=== PATIENT | female | born 1945 | race Caucasian/White ===

== ENCOUNTER → 2018-01-15 | Outpatient (CLI) | payer MEDICARE ==
--- NOTE | 2018-01-16 09:22 | US ---
EXAMINATION TYPE: US pelvic complete DATE OF EXAM: 01/15/2018 COMPARISON: NONE CLINICAL HISTORY: N94.9 Adnexal Mass. Patient c/o left hip joint pain and left knee pain and stated h ad possible CT abd/pelvis at [facility] recently TECHNIQUE: Transabdominal (TA); patient deferred TV US when offered to better look at left adnexa; ; C section x 3 Date of LMP: in early forties. EXAM MEASUREMENTS: Uterus: 11.9 x 5.2 x 3.7 cm Endometrial Stripe: 6.6mm Right Ovary: 2.5 x 2.8 x 1.1 cm Left Ovary: 3.7 x 3.9 x 3.2 cm 1. Uterus: Anteverted; possible uterine fibroid superiorly noted as round hypoechoic complex mass = 3.7 x 2.4 x 2.7cm 2. Endometrium: thickness is wnl as is <8.0mm and asymptomatic 3. Right Ovary: wnl 4. Left Ovary: tubular structure noted at left ovarian level and may be hydrosalpinx with adjacent m edial area noted as ovary on image #30 5. Bilateral Adnexa: right adnexa wnl 6. Posterior cul-de-sac: wnl Grayscale, color Doppler imaging performed IMPRESSION: Endovaginal scanning refused by the patient, limited exam. Suspect fibroid uterus. There may be a hydrosalpinx, left ovarian cyst, consider TROUSSEAU CONSULTANT consult, follow-up.
== END | disposition home or self-care (01) ==
LOC: RADUSWWP 15:19
PROVIDERS: ATTEND Internal Medicine
DX: N94.9 Unspecified condition associated with female genital organs and menstrual cycle (principal)
CPT/HCPCS: 76856

== ENCOUNTER 2023-02-19 05:53 | Day surgery (SDC) | payer MEDICARE ==
[2023-02-16 11:33] VITALS: BMI 42.7
[~2023-02-19 05:53] MED LIST: ALPRAZolam 0.25 MG TAB PO PRN; ALPRAZolam 0.5 MG TAB PO PRN; HEPARIN SODIUM,PORCINE 10,000 UNIT in SODIUM CHLORIDE 0.9% 1,000 ML IRRIGATION PRN; HEPARIN SODIUM,PORCINE 2,500 UNIT in SODIUM CHLORIDE 0.9% 250 ML IRRIGATION PRN; NITROGLYCERIN SL TABS 0.4 MG TAB SUBLINGUAL PRN; SODIUM CHLORIDE 0.9% 1,000 ML in EMPTY BAG 1 BAG IV SCH
[2023-02-19] MEDS ORDERED: SODIUM CHLORIDE 0.9% 1,000 ML IV ONE (06:06)
[2023-02-19] MEDS ORDERED: ASPIRIN 81 MG ONE (06:09)
[2023-02-19 06:32] LABS: Glucose,Whole Blood 123 mg/dL (70-110)
[2023-02-19 06:46] VITALS: RESP 18; TEMP 97.4
[2023-02-19 06:46] LABS: Basophils # (A) 0.1 k/uL (0-0.2); Basophils % (A) 1 %; Eosinophils # (A) 0.3 k/uL (0-0.7); Eosinophils % (A) 6 %; HCT 40.5 % (34.0-46.0); HGB 12.9 gm/dL (11.4-16.0); Lymphocytes # (A) 1.4 k/uL (1.0-4.8); Lymphocytes % (A) 27 %; MCHC 31.9 g/dL (31.0-37.0); MCV 94.2 fL (80.0-100.0); Monocytes # (A) 0.4 k/uL (0-1.0); Monocytes % (A) 7 %; Neutrophils % (A) 56 %; Platelet Count 243 k/uL (150-450); WBC 5.4 k/uL (3.8-10.6)
[2023-02-19] MEDS ORDERED: ATORVASTATIN 80 MG TAB PO ONE (07:00)
[2023-02-19] MEDS ORDERED: ASPIRIN 325 MG TAB PO ONE (07:00)
[2023-02-19 07:09] LABS: African American GFR (CKD) >90 (>60 ml/min/1.73 sqM); Anion Gap 11 mmol/L; Blood Urea Nitrogen 31 mg/dL (7-17); Calcium 9.4 mg/dL (8.4-10.2); Carbon Dioxide 23 mmol/L (22-30); Chloride 104 mmol/L (98-107); Glucose 120 mg/dL (74-99); Non-African American GFR(CKD) 89 (>60 ml/min/1.73 sqM); Sodium 138 mmol/L (137-145)
[2023-02-19] MEDS ORDERED: VERAPAMIL 2.5 MG/ML 2 ML AMP ONE (07:13)
[2023-02-19] MEDS ORDERED: IV FLUID CONTINUATION 1,000 ML IV ONE (07:23)
[2023-02-19] MEDS ORDERED: fentaNYL (PF) 50 MCG/ML 2 ML AMP ONE (07:27)
[2023-02-19 07:30] LABS: Potassium 5.1 mmol/L (3.5-5.1)
[2023-02-19] MEDS ORDERED: BENZOCAINE SPRAY 1 CAN TOPICAL ONE (07:30)
[2023-02-19] MEDS ORDERED: MIDAZOLAM 2 MG/2 ML VIAL IV ONE ×2 (07:36)
[2023-02-19] MEDS ORDERED: fentaNYL (PF) 50 MCG/ML 2 ML AMP IV ONE ×2 (07:36)
--- NOTE | 2023-02-19 07:52 | P.TEE ---
Description of Procedure(s): Procedure performed: Transesophageal Echocardiogram with color flow doppler, pulsed wave doppler and continuous wave doppler, moderate conscious sedation Moderate conscious sedation: Moderate conscious sedation was supplied with direct supervision of myself using Versed and Fentanyl. Complications: none Indications: Severe aortic stenosis PROCEDURE: After the risks, benefits and alternatives of the above mentioned procedure was explained in detail with the patient, informed consent was obtained. Patient was brought to the lab in a fasting state. Patient was given IV Versed and Fentanyl for sedation. The throat was sprayed with Hurricane to anesthetize the throat. A lubricated Omni probe was then introduced into the esophagus and stomach and multiple views were obtained. 2D echo with color flow doppler, pulsed wave doppler and continuous wave doppler was utilized. Agitated saline bubbles were injected to assess for any intra-atrial shunt. The probe was then removed. Patient tolerated the procedure well. Patient was transferred to the post procedure area in stable and satisfactory condition. FINDINGS: 1. The aortic valve is tricuspid with severe aortic stenosis with aortic valve area of 0.4 cm by planimetry, maximum velocity 4.7 m/s. 2. The mitral valve appears be normal with mild mitral regurgitation. 3. Tricuspid valve is normal with trace tricuspid regurgitation. 4. The interatrial septum is intact. No evidence of PFO. 5. Left atrial appendage is free of clot. 6. Left ventricular ejection fraction 55-60% without wall motion abnormalities.
[2023-02-19] MEDS ORDERED: LIDOCAINE 1% INJ 10MG/ML (5 ML VIAL-PF) SQ ONE (07:56)
[2023-02-19] MEDS ORDERED: VERAPAMIL SYRINGE (5 MG/10 ML) INTRAARTER ONE (07:58)
[2023-02-19] MEDS ORDERED: HEPARIN SODIUM 1,000 UN/ML (10ML VL) ONE (07:59)
[2023-02-19] MEDS ORDERED: HEPARIN SODIUM 1,000 UN/ML (10ML VL) IV ONE (08:01)
[2023-02-19] MEDS ORDERED: IOPAMIDOL-370 100ML BTL INJ ONE (08:05)
--- NOTE | 2023-02-19 08:08 | P.CARDCATH ---
Description of Procedure: PROCEDURES PERFORMED: Bilateral coronary angiography INDICATION:. Aortic stenosis CONSENT:I have discussed the risks, benefits and alternative therapies for the above-mentioned procedure and for both sedation/analgesia as well as necessary blood product administration, if indicated, as they pertain to this patient. The patient has indicated understanding and acceptance of the risks and procedures discussed. PROCEDURE: After the risks, benefits and alternatives of the above mentioned procedure explained in detail with the patient, informed consent was obtained. Patient was taken to the catheterization lab and prepped and draped in usual fashion. 1% lidocaine was used to anesthetize the right radial artery. A 6- Mongolian sheath was placed in the right radial artery using modified Seldinger technique. Left coronary angiography was performed with a 5-Mongolian JL 3.5 catheter and right coronary angiography was performed with a 5-Mongolian JR5 catheter in various views. The right radial sheath was removed and a TR band was placed with hemostasis achieved. The patient tolerated the procedure well. Patient was transported back to the post catheterization holding area in stable condition. Conscious Sedation: Patient was monitored under the direct supervision of myself for conscious sedation using Versed and fentanyl for a total duration of 12 minutes HEMODYNAMICS: Aorta: 129/43 SELECTIVE CORONARY ARTERIOGRAPHY: LEFT MAIN: The left main is a large caliber vessel which bifurcates into the LAD and circumflex. There is no significant stenosis. LEFT ANTERIOR DESCENDING CORONARY ARTERY: LAD is a large caliber vessel which wraps around to the apex. There is no significant stenosis. LEFT CIRCUMFLEX CORONARY ARTERY: Left circumflex is a moderate caliber vessel without significant stenosis. RIGHT CORONARY ARTERY: The right coronary artery is a large caliber vessel which gives off a PDA and PLV branch and is the dominant vessel. There is no significant stenosis. FINAL IMPRESSION: 1. Normal coronary arteries as described above. PLAN: 1. Aggressive risk factor modification per most recent ACC/AHA guidelines. 2. Follow-up in the office in 1-2 weeks.
[2023-02-19 12:08] VITALS: BP 138/72; PULSE 65
== END 2023-02-19 11:40 | disposition home or self-care (01) ==
LOC: CATHCVL 05:53
PROVIDERS: ATTEND Internal Medicine
DX: I08.3 Combined rheumatic disorders of mitral, aortic and tricuspid valves (principal); Z88.5 Allergy status to narcotic agent; Z88.2 Allergy status to sulfonamides; Z88.8 Allergy status to other drugs, medicaments and biological substances
CPT/HCPCS: 93312; 93320; 93325; 93458; 80048; 85025; C1769; C1894; J2250; J2001; J3010; J1644; Q9967

== ENCOUNTER → 2023-02-27 | Outpatient (CLI) | payer MEDICARE | END | disposition home or self-care (01) | LOC: LABPAT 09:48 | PROVIDERS: ATTEND Thoracic Surgery (Cardiothoracic Vascular Surgery) | DX: I21.09 ST elevation (STEMI) myocardial infarction involving other coronary artery of anterior wall (principal); R94.31 Abnormal electrocardiogram [ECG] [EKG] | CPT/HCPCS: 93005 ==

== ENCOUNTER → 2023-02-27 | Outpatient (CLI) | payer MEDICARE ==
[2023-02-27 09:49] LABS: INR 1.1 (<1.2); Partial Thromboplastin Time 25.9 sec (22.0-30.0); Prothrombin Time 11.5 sec (9.0-12.0)
[2023-02-27 09:58] LABS: Appearance,Urine Cloudy (Clear); Bacteria,Urine Rare /hpf; Bilirubin,Urine Negative (Negative); Blood,Urine Negative (Negative); Color,Urine Yellow; Glucose,Urine (UA) Negative (Negative); Hyaline Casts,Urine 3 /lpf (0-2); Ketones,Urine Negative (Negative); Leukocyte Esterase,Urine Large (Negative); Mucus,Urine Rare /hpf; Nitrite,Urine Positive (Negative); Protein,Urine Negative (Negative); RBC,Urine 5 /hpf (0-5); Specific Gravity,Urine 1.016 (1.001-1.035); Squamous Epithelial Cell,Urine 1 /hpf (0-4); Urobilinogen,Urine <2.0 mg/dL (<2.0); WBC,Urine 81 /hpf (0-5)
[2023-02-27 10:23] LABS: ALT 32 U/L (4-34); African American GFR (CKD) >90 (>60 ml/min/1.73 sqM); Albumin 4.4 g/dL (3.5-5.0); Albumin/Globulin Ratio 1.5; Anion Gap 12 mmol/L; Bilirubin,Unconjugated 0.6 mg/dL (0.0-1.1); Blood Urea Nitrogen 30 mg/dL (7-17); Calcium 9.5 mg/dL (8.4-10.2); Carbon Dioxide 24 mmol/L (22-30); Chloride 103 mmol/L (98-107); Glucose 111 mg/dL (74-99); Non-African American GFR(CKD) 87 (>60 ml/min/1.73 sqM); Sodium 139 mmol/L (137-145); Total Bilirubin 0.9 mg/dL (0.2-1.3); Total Protein 7.4 g/dL (6.3-8.2)
[2023-02-27 10:30] LABS: Potassium 5.5 mmol/L (3.5-5.1)
[2023-02-27 10:31] LABS: AST 39 U/L (14-36); Alkaline Phosphatase 56 U/L (38-126)
--- NOTE | 2023-02-27 12:02 | US ---
EXAMINATION TYPE: US carotid duplex BILAT DATE OF EXAM: 02/27/2023 COMPARISON: NONE CLINICAL INDICATION: Female, 77 years old with history of R55 SYNCOPE; Syncope. TECHNIQUE: Carotid duplex ultrasound examination. Indirect Doppler criteria was utilized. FINDINGS: EXAM MEASUREMENTS: RIGHT: Peak Systolic Velocity (PSV) cm/sec ----- Right CCA: 62.5 ----- Right ICA: 164.7 ----- Right ECA: 58.1 ICA/CCA ratio: 2.6 RIGHT: End Diastole cm/sec ----- Right CCA: 16.2 ----- Right ICA: 48.5 ----- Right ECA: 0.0 LEFT: Peak Systolic Velocity (PSV) cm/sec ----- Left CCA: 70.3 ----- Left ICA: 141.5 ----- Left ECA: 58.1 ICA/CCA ratio: 2.0 LEFT: End Diastole cm/sec ----- Left CCA: 17.1 ----- Left ICA: 43.0 ----- Left ECA: 0.0 VERTEBRALS (direction of flow): Right Vertebral: Antegrade Left Vertebral: Antegrade Rhythm: Normal BILL CHECKER NOTES: Elevated velocity within right ICA and left ICA. Shadowing plaque seen within bilateral bulbs and bilateral ICAs. ICA/CCA ratio was 2.6 on the right and 2.0 on the left. IMPRESSION: 50-69% stenosis of the bilateral carotid bifurcations. Criteria for Assigning % of Stenosis / Diameter reduction (Estimation based on the indirect measurements of the internal carotid artery velocities (ICA PSV). 1. Normal (no stenosis)=ICA PSV < 125 cm/s: ratio < 2.0: ICA EDV<40 cm/s. 2. Less than 50% stenosis=ICA PSV < 125 cm/s: ratio < 2.0: ICA EDV<40 cm/s. 3. 50 to 69% stenosis=ICA PSV of 125 to 230 cm/s: ration 2.0 ? 4.0: ICA EDV 40-100 cm/s. 4. Greater than 70% stenosis to near occlusion= ICA PSV > 230 cm/s: ratio > 4.0: ICA EDV > 100 cm/s. 5. Near occlusion= ICA PSV velocities may be low or undetectable: variable ratio and ICA EDV. 6. Total occlusion=unable to detect flow.
--- NOTE | 2023-02-27 13:23 | CT ---
EXAMINATION TYPE: CT TAVR Planning DATE OF EXAM: 02/27/2023 HISTORY: tavr planning CT DLP: 2553.3 mGycm Automated Exposure Control for Dose Reduction was Utilized. CONTRAST: CT scan of the chest, abdomen and pelvis is performed with IV Contrast, patient injected with 125 mL of Isovue 370. COMPARISON: None TECHNIQUE: Helical imaging obtained through the chest, abdomen and pelvis during arterial phase harris dannie administration of radiographic contrast intravenously. FINDINGS: Catheter planning CT. The ascending thoracic aorta is without evidence for aneurysmal dilation there is moderate to severe valve leaflet calcifications. There is a 2 vessel aortic arch. CHEST: Lower Neck and Thyroid: Calcification at the carotid bifurcations. Lungs: No focal consolidation, pneumothorax or pleural effusion. There are low lung lines. Central Airway: No significant findings Pleura: No significant findings Pulmonary Arteries: No significant findings Heart and Pericardium: No significant findings. There is coronary artery calcifications. Mitral valve annular calcifications are present. Lymph Nodes: No significant findings Mediastinum & Esophagus: No significant findings ABDOMEN/PELVIS: Please note arterial phase of the imaging limits detailed evaluation of the solid abdominal organs. Liver: No significant findings Spleen: No significant findings Kidneys: No significant findings Adrenal Glands: No significant findings Pancreas: No significant findings Gallbladder: No significant findings Bowel and Mesentery: No significant findings few scattered colonic diverticula. Lymph Nodes: No significant findings Urinary Bladder: No significant findings Pelvic Organs: No significant findings Other: No significant findings Other Lines/Tubes/Devices/Hardware: None IMPRESSION: 1. No evidence for aneurysmal dilation or dissection. 2. Moderate to severe aortic valve leaflet calcifications. 3. No acute thoracic or abdominal process. 4. Scattered colonic diverticula.
[2023-02-27 15:06] LABS: Basophils # (A) 0.07 X 10*3/uL (0.00-0.10); Basophils % (A) 1.3 %; Eosinophils # (A) 0.42 X 10*3/uL (0.04-0.35); Eosinophils % (A) 7.7 %; HCT 39.6 % (37.2-46.3); HGB 12.4 g/dL (12.0-15.0); Immature Grans, Automated 0.2 %; Lymphocytes # (A) 1.44 X 10*3/uL (0.90-5.00); Lymphocytes % (A) 26.4 %; MCH 29.9 pg (27.0-32.0); MCHC 31.3 g/dL (32.0-37.0); MCV 95.4 fL (80.0-97.0); Mean Platelet Volume 10.9 fL (9.5-12.2); Monocytes % (A) 9.2 %; NRBC Per 100 WBC 0 /100 WBCS (0.0-0.0); Neutrophils # (A) 3.02 X 10*3/uL (1.80-7.70); Neutrophils % (A) 55.2 %; Platelet Count 251 X 10*3/uL (140-440); RBC 4.15 X 10*6/uL (4.10-5.20); RDW 13.9 % (11.5-14.5); WBC 5.46 X 10*3/uL (4.50-10.00)
[2023-02-27 15:28] LABS: Chol/HDL Ratio 1.99 Ratio; LDL Cholesterol,Calculated 44.7 mg/dL (0.0-131.0); VLDL Calculation 18.48 mg/dL (5.00-40.00)
== END | disposition home or self-care (01) ==
LOC: LABWHC1 08:06
PROVIDERS: ATTEND Thoracic Surgery (Cardiothoracic Vascular Surgery)
DX: Z01.818 Encounter for other preprocedural examination (principal); I35.1 Nonrheumatic aortic (valve) insufficiency; I35.0 Nonrheumatic aortic (valve) stenosis; E87.8 Other disorders of electrolyte and fluid balance, not elsewhere classified; Z79.899 Other long term (current) drug therapy; E07.9 Disorder of thyroid, unspecified; E11.9 Type 2 diabetes mellitus without complications; N28.9 Disorder of kidney and ureter, unspecified; E78.5 Hyperlipidemia, unspecified; Z79.01 Long term (current) use of anticoagulants; R58 Hemorrhage, not elsewhere classified; R35.0 Frequency of micturition
CPT/HCPCS: 94150; 83880; 80061; 80053; 84443; 82248; 83735; 85025; 85610; 85730; 81001; 87086; 83036; 93880; 71275; 36415 ×2; 74174; Q9967

== ENCOUNTER → 2023-03-15 | Outpatient (CLI) | payer MEDICARE ==
[2023-03-15 13:03] LABS: INR 1.1 (<1.2); Partial Thromboplastin Time 22.9 sec (22.0-30.0); Prothrombin Time 11.2 sec (9.0-12.0)
[2023-03-15 15:56] LABS: ALT 27 U/L (8-44); AST 38 U/L (13-35); Albumin 4.6 d/dL (3.8-4.9); Albumin/Globulin Ratio 1.59 Ratio (1.60-3.17); Alkaline Phosphatase 62 U/L (41-126); BUN/Creat Ratio 28.71 Ratio (12.00-20.00); Blood Urea Nitrogen 20.1 mg/dL (9.0-27.0); Calcium 9.8 mg/dL (8.7-10.3); Carbon Dioxide 25.2 mmol/L (21.6-31.8); Chloride 103 mmol/L (96-109); Globulin 2.9 d/dL (1.6-3.3); Glucose 95 mg/dL (70-110); Potassium 5.5 mmol/L (3.5-5.5); Sodium 140 mmol/L (135-145); Total Bilirubin 0.6 mg/dL (0.3-1.2); Total Protein 7.5 d/dL (6.2-8.2)
[2023-03-15 20:12] LABS: Basophils # (A) 0.06 X 10*3/uL (0.00-0.10); Basophils % (A) 1.1 %; Eosinophils # (A) 0.28 X 10*3/uL (0.04-0.35); Eosinophils % (A) 5.3 %; HCT 42.9 % (37.2-46.3); HGB 13.4 d/dL (12.0-15.0); Lymphocytes # (A) 1.04 X 10*3/uL (0.90-5.00); Lymphocytes % (A) 19.5 %; MCHC 31.2 d/dL (32.0-37.0); MCV 96.2 FL (80.0-97.0); Mean Platelet Volume 11.8 FL (9.5-12.2); Monocytes # (A) 0.33 X 10*3/uL (0.20-1.00); Monocytes % (A) 6.2 %; NRBC Per 100 WBC 0 X 10*3/uL (0.00-0.01); Neutrophils # (A) 3.61 X 10*3/uL (1.80-7.70); Neutrophils % (A) 67.7 %; Platelet Count 224 X 10*3/uL (140-440); RBC 4.46 X 10*6/uL (4.10-5.20); RDW 13.9 % (11.5-14.5); WBC 5.33 X 10*3/uL (4.50-10.00)
== END | disposition home or self-care (01) ==
LOC: LABWHC1 11:24
PROVIDERS: ATTEND Thoracic Surgery (Cardiothoracic Vascular Surgery)
DX: Z01.812 Encounter for preprocedural laboratory examination (principal); I35.0 Nonrheumatic aortic (valve) stenosis; Z79.899 Other long term (current) drug therapy; Z79.01 Long term (current) use of anticoagulants
CPT/HCPCS: 36415; 80053; 85025; 85610; 85730

== ENCOUNTER 2023-03-21 07:55 | Inpatient (IN) | payer MEDICARE ==
[2023-03-21] MEDS ORDERED: ASPIRIN 325 MG TAB PO ONE (08:00)
[2023-03-21] MEDS ORDERED: LACTATED RINGERS 1,000 ML IV SCH (08:00)
[2023-03-21] MEDS ORDERED: CLOPIDOGREL 75 MG TAB PO ONE (08:00)
[2023-03-21] MEDS ORDERED: NITROGLYCERIN-D5W PMX 25 MG/250 ML BTL IV PRN (08:00)
[2023-03-21] MEDS ORDERED: METOPROLOL TARTRATE 25 MG TAB PO ONE (08:00)
[2023-03-21] MEDS ORDERED: PROTAMINE SULFATE 250 MG in EMPTY BAG 1 BAG IV PRN (08:00)
[2023-03-21] MEDS ORDERED: ATORVASTATIN 10 MG TAB PO ONE (08:00)
[2023-03-21] MEDS ORDERED: CLEVIDIPINE BUTYRATE 25 MG in EMPTY BAG 1 BAG IV PRN (08:00)
[2023-03-21] MEDS ORDERED: ELECTROLYTE-A SOLUTION 1,000 ML with POTASSIUM CHLORIDE 100 MEQ, MAGNESIUM SULFATE 16 M... IV PRN ×5 (08:00)
[2023-03-21] MEDS ORDERED: INSULIN REGULAR 100 UNIT in SODIUM CHLORIDE 0.9% 100 ML IV PRN (08:00)
[2023-03-21] MEDS ORDERED: TRANEXAMIC ACID 2,000 MG in SODIUM CHLORIDE 0.9% 80 ML IV PRN (08:00)
[2023-03-21] MEDS ORDERED: SODIUM CHLORIDE 0.9% 500 ML 500 ML INTRAARTER PRN (08:00)
[2023-03-21] MEDS ORDERED: SODIUM CHLORIDE 0.9% 1,000 ML IV ONE (08:30)
[2023-03-21 08:38] LABS: Glucose,Whole Blood 115 mg/dL (70-110)
[2023-03-21] MEDS ORDERED: PROPOFOL 10 MG/ML 20 ML VIAL IV ONE (09:41)
[2023-03-21] MEDS ORDERED: NEOSTIGMINE 1 MG/ML 10 ML VIAL ONE (09:41)
[2023-03-21] MEDS ORDERED: ROCURONIUM 10 MG/ML (5 ML VIAL) IV ONE (09:41)
[2023-03-21] MEDS ORDERED: LIDOCAINE 4% LTA KIT (4 ML) TOPICAL ONE (09:41)
[2023-03-21] MEDS ORDERED: SUCCINYLCHOLINE CHLORIDE 200 MG/10 ML VIAL IV ONE (09:41)
[2023-03-21] MEDS ORDERED: ePHEDrine 50 MG/ML 1 ML VIAL ONE (09:41)
[2023-03-21] MEDS ORDERED: PROTAMINE SULFATE 10 MG/ML 5 ML VIAL IV ONE (09:41)
[2023-03-21] MEDS ORDERED: GLYCOPYRROLATE 0.2 MG/ML 2 ML VIAL ONE (09:41)
[2023-03-21] MEDS ORDERED: lisinopriL 10 MG TAB ONE (09:41)
[2023-03-21] MEDS ORDERED: LIDOCAINE 2% INJ 20 MG/ML (2 ML VIAL) ONE (09:41)
[2023-03-21] MEDS ORDERED: PHENYLEPHRINE-0.9% NACL SYG 1,000 MCG/10 ML SYRINGE ONE (09:41)
--- NOTE | 2023-03-21 09:49 | P.ANPRN ---
Procedure Note - Anesthesia - Invasive Line Right Arterial Line Time Out Performed: Yes Date of Procedure: 03/21/23 Time of Procedure: 09:20 Location of Patient: CVL Preparation: Sterile Prep, Sterile Dressing Arterial Line Location: Radial Ultrasound Used: Yes Purpose - Visualization and Identification of Vasculature: Yes Image Stored and Saved: No (No capability on machine) Narrative: Right radial arterial line placed under u/s guidance using Seldinger technique.
[2023-03-21] MEDS ORDERED: LIDOCAINE 1% INJ 10MG/ML (20 ML MDV) SQ ONE (10:16)
[2023-03-21] MEDS ORDERED: IOPAMIDOL-370 100ML BTL INJ ONE ×2 (11:00→11:10)
[2023-03-21] MEDS ORDERED: IPRATROPIUM-ALBUTEROL 3 ML NEB INHALATION PRN (11:12)
[2023-03-21] MEDS ORDERED: SENNOSIDES-DOCUSATE SODIUM 1 EACH TAB PO PRN (11:12)
[2023-03-21] MEDS ORDERED: ACETAMINOPHEN TAB 325 MG TAB PO PRN (11:12)
[2023-03-21] MEDS ORDERED: Potassium Replacement Protocol 1 EACH MISC MISCELLANE PRN (11:12)
[2023-03-21] MEDS ORDERED: DEXTROSE 50% SYRINGE 50 ML IVP PRN ×2 (11:12)
[2023-03-21] MEDS ORDERED: Magnesium Replacement Protocol 1 EACH MISC MISCELLANE PRN (11:12)
[2023-03-21] MEDS ORDERED: ONDANSETRON 4 MG/2 ML VIAL IVP PRN (11:12)
--- NOTE | 2023-03-21 11:23 | P.ANPRN ---
Procedure Note - Anesthesia - SETH Intraop Pre Bypass SETH Intraop - Anesthesia Indication: Date of Procedure: 03/21/23 Pre-operative Diagnosis: Post-operative Diagnosis: Same Surgeon: Adam Christian Left Ventricle: EF 55% Ejection Fraction: Normal Regional Wall Motion Abnormalities: None Left Ventricle Hypertrophy: No (1 cm) R. Ventricle Function: Normal Anatomy: Trileaflet Aortic Stenosis: Severe (Peak 71 mmHg, Mean 43 mmHg) Aortic Regurgitation: Trace Mitral Stenosis: None Mitral Regurgitation: Trace Tricuspid Stenosis: None Tricuspid Regurgitation: None Pulmonic Stenosis: None Pulmonic Regurgitation: None R. Atrial Dilation: No R. Atrial PFO: No L. Atrial Dilation: No Aortic Dissection: No Aortic Calcification: Severe Plural Effusion: None - SETH Intraop Post Bypass SETH Intraop Post Bypass Procedure Performed: TAVR Left Ventricle: EF 70% Ejection Fraction: Normal Regional Wall Motion Abnormalities: None R. Ventricle Function: Normal Aortic Valve: Peak 17 mmHg, Mean 8 mmHg; Mild perivalvular leak LCC and NCC Mitral Valve: Unchanged Tricuspid: Unchanged Pulmonic: Unchanged Aortic Dissection: No
--- NOTE | 2023-03-21 11:26 | P.OP ---
Date of Procedure: 03/21/23 Preoperative Diagnosis: Symptomatic severe tricuspid aortic stenosis Postoperative Diagnosis: Same Procedure(s) Performed: Percutaneous transcatheter aortic valve replacement with 29 mm FX Medtronic core valve Implants: 29 mm FX Medtronic core valve Anesthesia: GETA Surgeon: Pito Foster (cut off machine unloader) Larriman #1: Adam Christian (Cardiovascular surgeon) Larriman #2: Blayne Leon (Nurse practitioner) Estimated Blood Loss (ml): 25 IV fluids (ml): 500 Pathology: none sent Condition: stable Disposition: ICU Indications for Procedure: 77-year-old morbidly obese woman presents with worsening shortness of breath dyspnea and chest pain, found to have radical aortic valvular stenosis. Cardiac catheterization was negative for coronary artery disease. Left ventricular function was well preserved with moderate LV hypertrophy. She seen in the high risk valve clinic for shared decision-making and felt to be most appropriate for transcatheter valve implantation due to her age and morbid obesity. Operative Findings: See below Description of Procedure: Patient was brought to cardiac catheterization laboratory and general anesthesia was induced. The anterior torso and bilateral groins were sterilely prepped and draped. Bilateral femoral arterial access was obtained by Dr. Foster with ultrasound guidance. On the left long 6-Guatemalan sheath was placed into the descending thoracic aorta. On the right short 6-Guatemalan sheath was placed and then 2 Perclose devices were placed and an 8-Guatemalan sheath was placed. The left femoral vein was cannulated with a long 6-Guatemalan sheath and transvenous pacer advanced into the right ventricle. Pigtail catheter was advanced to the left femoral sheath and placed in the noncoronary sinus of Valsalva. Patient was systemically heparinized. A CTs were maintained greater than 250. 8-Guatemalan sheath on the right was exchanged over a stiff wire for 14-Guatemalan sheath. This proceeded without event. Aortic valve was crossed from the right and a pigtail catheter positioned in the apex of the left ventricle. Transvalvular gradients were measured. Aortic root injection was performed. Stiff wire was placed in the apex of the left ventricle. A 29 Medtronic FX Core valve was loaded on the back table and checked under fluoroscopy. The 14-Guatemalan sheath was exchanged for the core valve delivery system and it was advanced upwards through the vascular system around the aortic arch and across the aortic valve. Or valve was deployed under rapid ventricular pacing with excellent ultimate appointment. There was excellent expansion on both fluoroscopy and echocardiography. Or valve delivery system was pulled back. There was trivial MR on SETH and inject ion of the aortic root demonstrated good filling of the coronary arteries and no evidence of paravalvular leak. Heparin was reversed with protamine. The core valve delivery system was exchanged for 14-Guatemalan sheath and the 14-Guatemalan sheath was then removed and the 2 Perclose devices deployed with excellent hemostasis. Completion angiography demonstrated no evidence of narrowing patent femoral vessels and no evidence of leak. Left femoral arterial and venous system were removed and hemostasis obtained with direct pressure. Patient was extubated and transferred to ICU in stable condition.
[2023-03-21] MEDS: LACTATED RINGERS 1,000 ML IV SCH (11:35)
[2023-03-21 11:37] LABS: Glucose,Whole Blood 122 mg/dL (70-110)
[2023-03-21] MEDS: INSULIN ASPART (NovoLOG) 100 UNIT/ML VIAL SQ SCH ×3 (11:51→21:00)
[2023-03-21 11:59] LABS: Basophils % (A) 0 %; Eosinophils # (A) 0.3 k/uL (0-0.7); Eosinophils % (A) 6 %; HCT 35.3 % (34.0-46.0); HGB 11.7 gm/dL (11.4-16.0); Lymphocytes # (A) 1.3 k/uL (1.0-4.8); Lymphocytes % (A) 23 %; MCH 30.9 pg (25.0-35.0); MCHC 33.2 g/dL (31.0-37.0); MCV 93.1 fL (80.0-100.0); Mean Platelet Volume 8.1; Monocytes # (A) 0.2 k/uL (0-1.0); Monocytes % (A) 3 %; Neutrophils # (A) 3.8 k/uL (1.3-7.7); Neutrophils % (A) 67 %; Platelet Count 202 k/uL (150-450); RBC 3.79 m/uL (3.80-5.40); RDW 13.9 % (11.5-15.5); WBC 5.7 k/uL (3.8-10.6)
--- NOTE | 2023-03-21 11:59 | P.PCN ---
Description of Procedure: Transcatheter Aoritc Valve Replacement Operative report PROCEDURE PERFORMED: 1. Percutaneous Aortic Valve Implantation using a 29 mm Core-Valve Evolut-FX. 2. Transesophageal echocardiography (performed by anesthesia) 3. Ultrasound guided access and repair of right femoral artery access site by Perclose closure device. 4. Placement of temporary pacemaker wire. 5. Aortic root angiography INDICATIONS: 1. 77 year-old with a history of severe symptomatic aortic valve stenosis. PERFORMING PHYSICIANS: 1. Pito Foster, Interventional Cardiology 2. Adam Christian MD, Cardiothoracic Surgeon. SEDATION: General anesthesia provided by anesthesia, see separate note APPROACH: Right femoral artery via percutaneous approach PROCEDURE DESCRIPTION: The patient was discussed at valve clinic with multidisciplinary approach with cardiothoracic surgeon as well as organ pipe voicer and thought better treated with TAVR. Risks, benefits, and alternatives of the procedure had been explained to the patient who understood the risks and agreed to proceed. After consents were obtained, patient was brought to the transcatheter aortic valve implantation room in the cardiac slab installer and general anesthesia was provided by the anesthesiologist (see separate report). Once full body sterile prep was performed, a 6-Armenian sheath was placed in the left femoral vein using ultrasound guidance. Next a 6-Armenian temporary venous pacemaker was placed into the right ventricle from the left femoral approach. Pacing threshholds were checked and deemed appropriate. Next the left femoral artery was accessed using a modified Seldinger technique, ultrasound guidance and micropuncture technique. A 6 Armenian Rabi sheath was placed in the left femoral artery. Next, a 6-Armenian pigtail catheter was advanced into the aorta and positioned in the aortic root, aortic root angiography was performed to determine optimal deployment angle. The right femoral artery was accessed using modified Seldinger technique, micropuncture technique and under direct ultrasound guidance. Femoral angiogram was done showing access in the common femoral artery and a 6Fr sheath was placed. Next preclose technique was performed using 2 Percloses. Next a 0.035 Lunderquist wire was placed in the Aorta via a pigtail catheter. Over that the arteriotomy was serially dilated and a 14 Fr Sherman sheath was placed. Next a 6F- AL1 catheter was advanced over a wire to the aortic root. A straight wire was advanced through the catheter and used to cross the severely stenotic valve. The AL1 was then exchanged for a 6Fr pigtail catheter and pressure measurements were obtained. The 0.035 Lunderquist wire was then positioned in the apex. Next a 29 mm Corevalve Evolut-FX Plus was advanced. The valve was then positioned across the aortic valve and confirmed with aortic root angiography. The valve was initially partially deployed however needed repositioning and therefore was recaptured. The valve was then deployed in proper position using slow deployment and with rapid pacing in conjuncture with aortic root angiography and SETH. The delivery system was withdrawn back into the arch and an aortic root injection in conjunction with SETH demonstrated a satisfactory result. There was mild para valvular leak. There was no evidence of any other significant abnormalities. The preclose Perclose was then deployed in the right femoral artery and hemostasis was achieved. The pigtail was then advanced to the level of the iliac bifurcation via the left femoral access. Femoral angiogram was performed that showed no contrast leak. The left femoral angiogram demonstrated anatomy suitable for closure and therefore a 6Fr Angioseal was placed with complete hemostasis. The temporary venous pacemaker was pulled and the femoral venous sheath was pulled and pressure held with hemostasis achieved. The patient was then transported to the ICU in hemodynamically stable condition, requiring no pressor support. COMPLICATIONS: None CONCLUSION: 1. Implantaion of 29mm Core-Valve Evolut-FX transcatheter aortic valve via right femoral approach under SETH and fluoro guidance with mild para-valvular aortic regurgitation. 2. Placement of temporary pacemaker wire 3. Aortic Root Aortogram. RECOMMENDATIONS: The patient will be monitored in the ICU for hemodynamic and electrical stability. Patient will be on aspirin and Plavix.
[2023-03-21 12:08] LABS: Ionized Calcium 4.9 mg/dL (4.5-5.3)
[2023-03-21 12:11] LABS: INR 1.1 (<1.2); Partial Thromboplastin Time 23.7 sec (22.0-30.0); Prothrombin Time 11.6 sec (9.0-12.0)
[2023-03-21 12:12] LABS: ALT 24 U/L (4-34); AST 30 U/L (14-36); African American GFR (CKD) >90 (>60 ml/min/1.73 sqM); Albumin 3.8 g/dL (3.5-5.0); Alkaline Phosphatase 50 U/L (38-126); Anion Gap 11 mmol/L; Blood Urea Nitrogen 22 mg/dL (7-17); Calcium 8.6 mg/dL (8.4-10.2); Carbon Dioxide 22 mmol/L (22-30); Chloride 106 mmol/L (98-107); Glucose 127 mg/dL (74-99); Magnesium 1.8 mg/dL (1.6-2.3); Non-African American GFR(CKD) 89 (>60 ml/min/1.73 sqM); Sodium 139 mmol/L (137-145); Total Bilirubin 0.6 mg/dL (0.2-1.3); Total Protein 6.4 g/dL (6.3-8.2)
--- NOTE | 2023-03-21 12:27 | P.CNPUL ---
History of Present Illness Consult date: 03/21/23 Requesting physician: Pito Foster Chief complaint: Transcatheter aortic valve replacement. History of present illness: Pulmonary consult dated 03/21/2023. 77-year-old female who sees Dr. Foster for her heart doctor, and has a history of aortic stenosis, diabetes mellitus, hypertension, hyperlipidemia, and a his tory of intracranial aneurysm. The patient was evaluated for transcatheter aortic valve replacement. It was performed today, 03/21/2023. Today is postoperative day #0. The patient was seen by our team in the intensive care unit, room 258. She's currently on 2 L of oxygen. She's receiving lactated Ringer's at 50 mL an hour. Her primary care physician is Dr. Haskins in [place], [place]. The patient was found to have severe aortic stenosis, hence the procedure. She had good pulmonary function. Laboratory data includes a white count of 5.7, hemoglobin 11.7, hematocrit 35.3, and a platelet count of 202,000. The comprehensive metabolic profile is pending. Glucose 115. Potassium is 4. Coagulation studies are normal. Review of Systems REVIEW OF SYSTEMS: CONSTITUTIONAL: Fatigue. NEUROLOGIC: Syncope. HEENT: [ Negative.] CARDIAC: [Negative.] PULMONARY: Shortness of breath on exertion. GI: [Negative.] : [Negative.] RHEUMATOLOGIC: [ Negative.] IMMUNOLOGIC: [ Negative.] ENDOCRINE: [Negative. ] DERMATOLOGIC: [Negative.] Past Medical History Past Medical History: Diabetes Mellitus, Hyperlipidemia, Hypertension, Skin Disorder Additional Past Medical History / Comment(s): "small dot like rash that comes & goes", SOB w/exertion, had 7 teeth pulled last week for this upcoming surgery, states "they never gave me antibiotics for after". TAVR 03/21/23 W/ Dr. Foster & Dr. Christian History of Any Multi-Drug Resistant Organisms: None Reported Past Surgical History: Breast Surgery, Section, Heart Catheterization Additional Past Surgical History / Comment(s): mason. breast bx-benign, C/S x3, SETH Past Anesthesia/Blood Transfusion Reactions: No Reported Reaction Past Psychological History: No Psychological Hx Reported Smoking Status: Former smoker Past Alcohol Use History: None Reported Additional Past Alcohol Use History / Comment(s): quit smoking 1984, 3ppd for 2 yrs. Past Drug Use History: None Reported - Past Family History Mother Additional Family Medical History / Comment(s): "heart issues" Medications and Allergies Home Medications Medication Instructions Recorded Confirmed Type Atorvastatin [Lipitor] 40 mg PO HS 02/16/23 03/21/23 History Cholecalciferol [Vitamin D3 (25 25 mcg PO DAILY 02/16/23 03/20/23 History Mcg = 1000 Iu)] Cyanocobalamin (Vitamin B-12) 1,000 mcg PO DAILY 02/16/23 03/20/23 History [Vitamin B-12] Garlic Extract [Garlic] 400 mg PO DAILY 02/16/23 03/20/23 History Multivit-Min/Iron/Folic/Lutein 1 each PO DAILY 02/16/23 03/20/23 History [Centrum Silver Women Tablet] Pioglitazone HCl 30 mg PO DAILY 02/16/23 03/21/23 History lisinopriL [Zestril] 10 mg PO DAILY 02/16/23 03/21/23 History metFORMIN HCL [Glucophage] 1,000 mg PO BID 02/16/23 03/20/23 History Acetaminophen Tab [Tylenol] 650 mg PO Q4-6H PRN 03/20/23 03/20/23 History Allergies Allergy/AdvReac Type Severity Reaction Status Date / Time codeine Allergy Rash/Hives Verified 03/20/23 08:24 nitroglycerin Allergy Unknown Verified 03/21/23 08:10 Penicillins Allergy Rash/Hives Verified 03/20/23 08:24 Sulfa (Sulfonamide Allergy Rash/Hives Verified 03/20/23 08:24 Antibiotics) Physical Exam Osteopathic Statement: *. No significant issues noted on an osteopathic structural exam other than those noted in the History and Physical/Consult. Vitals: Vital Signs Temp Pulse Pulse Resp BP BP BP 03/21/23 11:50 77 24 149/64 03/21/23 11:40 87 24 03/21/23 11:35 97.1 F L 89 23 03/21/23 08:54 97.9 F 80 16 178/81 181/74 Pulse Ox 03/21/23 11:50 97 03/21/23 11:40 96 03/21/23 11:35 96 03/21/23 08:54 95 Intake and Output 03/20/23 03/21/23 03/21/23 22:59 06:59 14:59 Intake Total 550 Balance 550 Intake: IV 550 Other: Weight 96.6 kg ABP, PAP, CO, CI - Last 8 Hours Arterial Blood Pressure 157/63 Arterial Blood Pressure 147/60 Arterial Blood Pressure 153/64 No acute distress, oriented 3. Resting comfortably in bed. Currently on 2 L of oxygen. HEENT examination is grossly unremarkable. Mucous membranes are moist. No oral lesions. Neck supple. Full range of motion. No adenopathy thyromegaly or neck vein distention. Cardiovascular examination reveals regular rhythm rate. S1-S2 normal. No S3 or S4. No discernible murmur noted. Lungs reveal clear breath sounds. Breath sounds are equal bilaterally. No adventitious lung sounds including wheezes rhonchi or crackles. Abdomen soft bowel sounds are heard. No masses or tenderness. Extremities are intact. No cyanosis clubbing or edema. Skin is without rash or lesion. Neurologic examination is brief but nonfocal. Results - Laboratory Findings CBC and BMP: 03/21/23 11:40 03/21/23 11:40 PT/INR, D-dimer PT 11.6 sec (9.0-12.0) 03/21/23 11:40 INR 1.1 (<1.2) 03/21/23 11:40 Abnormal lab findings: Abnormal Labs 03/15/23 03/21/23 03/21/23 12:14 08:37 11:36 RBC POC Glucose (mg/dL) 115 H 122 H Crossmatch See Detail 03/21/23 11:40 RBC 3.79 L POC Glucose (mg/dL) Crossmatch Assessment and Plan Assessment: Postop day #0, status post transcatheter aortic valve replacement, for severe and symptomatic aortic stenosis. History of hypertension. History of hyperlipidemia. History of diabetes mellitus. History of intracranial aneurysm. Plan: Plan dated 03/21/2023. The patient is seen today in room 258. She is doing relatively well. She came through the procedure clinically stable. The patient is currently on 2 L of oxygen. She's receiving lactated Ringer's at 50 mL an hour. Labs are reviewed. We will continue to follow the patient. Hopeful discharge sometime tomorrow. Time with Patient: Greater than 30
--- NOTE | 2023-03-21 14:15 | XR ---
EXAMINATION TYPE: XR chest 1V portable DATE OF EXAM: 03/21/2023 HISTORY: Post Operative Cardiac Surgery COMPARISON: None. TECHNIQUE: Single view of the chest is submitted. FINDINGS: Demonstrated are scattered senescent parenchymal change. There is no evidence for focal infiltrate. The heart is stable. Cardiovascular symptomatology someplace. Mild chronic elevation right hemidiaphr agm. No evidence for pneumothorax. Hilar and mediastinal structures are within normal limits. Degenerative changes are seen of the dorsal spine. IMPRESSION: 1. Chronic changes without evidence for acute pulmonary disease.
[2023-03-21 16:22] LABS: Glucose,Whole Blood 118 mg/dL (70-110)
[2023-03-21 20:59] LABS: Glucose,Whole Blood 139 mg/dL (70-110)
[2023-03-21] MEDS ORDERED: ATORVASTATIN 40 MG TAB PO SCH (21:00)
[2023-03-22] MEDS: HEPARIN SODIUM,PORCINE/PF 5,000 UNIT/0.5 ML SYRINGE SQ SCH ×2 (00:11→08:01)
[2023-03-22 04:15] LABS: Basophils % (A) 0 %; Eosinophils # (A) 0.3 k/uL (0-0.7); Eosinophils % (A) 4 %; HCT 33.8 % (34.0-46.0); HGB 11.3 gm/dL (11.4-16.0); Lymphocytes # (A) 0.9 k/uL (1.0-4.8); Lymphocytes % (A) 14 %; MCH 31.5 pg (25.0-35.0); MCHC 33.4 g/dL (31.0-37.0); MCV 94.2 fL (80.0-100.0); Monocytes # (A) 0.4 k/uL (0-1.0); Monocytes % (A) 7 %; Neutrophils # (A) 4.6 k/uL (1.3-7.7); Neutrophils % (A) 73 %; Platelet Count 184 k/uL (150-450); RBC 3.59 m/uL (3.80-5.40); RDW 13.6 % (11.5-15.5); WBC 6.2 k/uL (3.8-10.6)
[2023-03-22 04:47] LABS: Ionized Calcium 4.8 mg/dL (4.5-5.3)
[2023-03-22 04:53] LABS: ALT 22 U/L (4-34); AST 33 U/L (14-36); African American GFR (CKD) >90 (>60 ml/min/1.73 sqM); Albumin 3.6 g/dL (3.5-5.0); Alkaline Phosphatase 53 U/L (38-126); Anion Gap 7 mmol/L; Blood Urea Nitrogen 16 mg/dL (7-17); Calcium 8.5 mg/dL (8.4-10.2); Carbon Dioxide 24 mmol/L (22-30); Chloride 103 mmol/L (98-107); Glucose 150 mg/dL (74-99); Magnesium 1.7 mg/dL (1.6-2.3); Non-African American GFR(CKD) 89 (>60 ml/min/1.73 sqM); Potassium 4.1 mmol/L (3.5-5.1); Sodium 134 mmol/L (137-145); Total Bilirubin 0.5 mg/dL (0.2-1.3); Total Protein 6.1 g/dL (6.3-8.2)
[2023-03-22] MEDS ORDERED: MAGNESIUM SULFATE-D5W PMX 1 GM in DEXTROSE/WATER 1 100ML.BAG IVPB ONE (05:03)
[2023-03-22 05:46] LABS: Glucose,Whole Blood 163 mg/dL (70-110)
[2023-03-22] MEDS: INSULIN ASPART (NovoLOG) 100 UNIT/ML VIAL SQ SCH ×2 (06:38→11:41)
[2023-03-22] MEDS: LACTATED RINGERS 1,000 ML IV SCH (06:43)
[2023-03-22] MEDS ORDERED: MD COMMUNICATION TO PHARMACY 1 EACH MISC PO PRN (07:30)
[2023-03-22] MEDS ORDERED: PANTOPRAZOLE 40 MG TABLET PO SCH (07:30)
--- NOTE | 2023-03-22 07:56 | XR ---
EXAMINATION TYPE: XR chest 1V portable DATE OF EXAM: 03/22/2023 6:07 AM COMPARISON: Chest radiographs from 03/21/2023 TECHNIQUE: XR chest 1V portable Portable AP radiograph of the chest. CLINICAL INDICATION:Female, 77 years old with history of Post Operative Cardiac Surgery; FINDINGS: Lungs/Pleura: There is no evidence of pleural effusion, focal consolidation, or pneumothorax. Right hemidiaphragm is elevated again. Pulmonary vascularity: Unremarkable. Heart/mediastinum: Cardiomediastinal silhouette is stable. Atherosclerotic calcification of the aorta . Postsurgical changes from TAVR. Musculoskeletal: No acute osseous pathology. Degenerative changes of the spine. IMPRESSION: Stable postsurgical changes without evidence for acute process.
[2023-03-22] MEDS ORDERED: ASPIRIN 81 MG PO SCH (09:00)
[2023-03-22] MEDS ORDERED: CYANOCOBALAMIN 500 MCG TAB PO SCH (09:00)
[2023-03-22] MEDS ORDERED: CHOLECALCIFEROL 25 MCG (1000 IU) TABLET PO SCH (09:00)
[2023-03-22] MEDS ORDERED: lisinopriL 10 MG TAB PO SCH (09:00)
[2023-03-22] MEDS ORDERED: MAGNESIUM HYDROXIDE 2,400 MG/10 ML CUP PO PRN (09:00)
[2023-03-22] MEDS ORDERED: MULTIVITAMINS, THERA 1 EACH TAB PO SCH (09:00)
[2023-03-22] MEDS ORDERED: METOPROLOL TARTRATE 25 MG TAB PO SCH (09:00)
[2023-03-22] MEDS ORDERED: PIOGLITAZONE 30 MG TAB PO SCH (09:00)
--- NOTE | 2023-03-22 09:49 | P.PN ---
Subjective Progress Note Date: 03/22/23 Principal diagnosis: Shortness of breath and fatigue. Pulmonary consult dated 03/21/2023. 77-year-old female who sees Dr. Foster for her heart doctor, and has a history of aortic stenosis, diabetes mellitus, hypertension, hyperlipidemia, and a history of intracranial aneurysm. The patient was evaluated for transcatheter aortic valve replacement. It was performed today, 03/21/2023. Today is postoperative day #0. The patient was seen by our team in the intensive care un it, room 258. She's currently on 2 L of oxygen. She's receiving lactated Ringer's at 50 mL an hour. Her primary care physician is Dr. Haskins in [place], [place]. The patient was found to have severe aortic stenosis, hence the procedure. She had good pulmonary function. Laboratory data includes a white count of 5.7, hemoglobin 11.7, hematocrit 35.3, and a platelet count of 202,000. The comprehensive metabolic profile is pending. Glucose 115. Potassium is 4. Coagulation studies are normal. Progress note dated 03/22/2023. This is postop day 1, status post transcatheter aortic valve replacement. The patient's currently on room air. She's not receiving any IV fluids. The patient is doing very well, without any major complaints. Laboratory data includes a white count of 6.2, hemoglobin 11.3, hematocrit 33.8, and a normal platelet count. Sodium 134, potassium 4.1, chlorides 103, CO2 24, BUN 16, creatinine 0.59. Chest x-ray shows no acute abnormalities. Objective - Vital Signs Vital signs: Vital Signs Temp 98.8 F 03/22/23 08:00 Pulse 82 03/22/23 09:00 Resp 16 03/22/23 09:00 BP 133/50 03/22/23 09:00 Pulse Ox 93 L 03/22/23 09:00 FiO2 Intake & Output 03/21/23 03/22/23 03/22/23 18:59 06:59 18:59 Intake Total 1345 210 310 Output Total 905 1110 105 Balance 440 -900 205 Weight 96.6 kg 96.6 kg Intake: IV 865 210 70 Invasive Line 1 20 30 10 Invasive Line 2 20 30 10 Lactated Ringers 1,000 ml 225 @ 50 mls/hr IV .Q20H [facility] Rx#:[id number] Magnesium Sulfate-D5w Pmx 100 1 gm In Dextrose/Water 1 100ml.bag @ 100 mls/hr IVPB ONCE ONE Rx#: [id number] ceFAZolin 2 gm In Sodium 50 50 Chloride 0.9% 50 ml @ 100 mls/hr IVPB ONCE ONE Rx# :[id number] ceFAZolin 2 gm In Sodium 50 Chloride 0.9% 50 ml @ 100 mls/hr IVPB Q8H [facility] Rx#: [id number] Oral 480 240 Output: Urine 905 1110 105 Other: Voiding Method Toilet Toilet Indwelling Catheter # Bowel Movements 0 0 ABP, PAP, CO, CI - Last Documented Arterial Blood Pressure 142/52 - Exam No acute distress, oriented 3. Resting comfortably in bed. Currently on room air. HEENT examination is grossly unremarkable. Mucous membranes are moist. No oral lesions. Neck supple. Full range of motion. No adenopathy thyromegaly or neck vein distention. Cardiovascular examination reveals regular rhythm rate. S1-S2 normal. No S3 or S4. No discernible murmur noted. Heart rate 82 bpm. Lungs reveal clear breath sounds. Breath sounds are equal bilaterally. No adventitious lung sounds including wheezes rhonchi or crackles. Saturations are 93%. Abdomen soft bowel sounds are heard. No masses or tenderness. Extremities are intact. No cyanosis clubbing or edema. Skin is without rash or lesion. Neurologic examination is brief but nonfocal. - Labs CBC & Chem 7: 03/22/23 03:47 03/22/23 03:47 Labs: Abnormal Lab Results - Last 24 Hours (Table) 03/15/23 03/21/23 03/21/23 Range/Units 12:14 11:36 11:40 RBC 3.79 L (3.80-5.40) m/uL Hgb (11.4-16.0) gm/dL Hct (34.0-46.0) % Lymphocytes # (1.0-4.8) k/uL Sodium (137-145) mmol/L BUN (7-17) mg/dL Glucose (74-99) mg/dL POC Glucose (mg/dL) 122 H (70-110) mg/dL Total Protein (6.3-8.2) g/dL Crossmatch See Detail 0603/21/23 03/21/23 Range/Units 11:40 16:20 20:58 RBC (3.80-5.40) m/uL Hgb (11.4-16.0) gm/dL Hct (34.0-46.0) % Lymphocytes # (1.0-4.8) k/uL Sodium (137-145) mmol/L BUN 22 H (7-17) mg/dL Glucose 127 H (74-99) mg/dL POC Glucose (mg/dL) 118 H 139 H (70-110) mg/dL Total Protein (6.3-8.2) g/dL Crossmatch 03/22/23 03/22/23 03/22/23 Range/Units 03:47 03:47 05:44 RBC 3.59 L (3.80-5.40) m/uL Hgb 11.3 L (11.4-16.0) gm/dL Hct 33.8 L (34.0-46.0) % Lymphocytes # 0.9 L (1.0-4.8) k/uL Sodium 134 L (137-145) mmol/L BUN (7-17) mg/dL Glucose 150 H (74-99) mg/dL POC Glucose (mg/dL) 163 H (70-110) mg/dL Total Protein 6.1 L (6.3-8.2) g/dL Crossmatch Assessment and Plan Assessment: Postop day #1, status post transcatheter aortic valve replacement, for severe and symptomatic aortic stenosis. History of hypertension. History of hyperlipidemia. History of diabetes mellitus. History of intracranial aneurysm. Plan: Plan dated 03/21/2023. The patient is seen today in room 258. She is doing relatively well. She came through the procedure clinically stable. The patient is currently on 2 L of oxygen. She's receiving lactated Ringer's at 50 mL an hour. Labs are reviewed. We will continue to follow the patient. Hopeful discharge sometime tomorrow. Plan dated 03/22/2023. Patient appears be doing relatively well. We will continue to follow the patient and make recommendations along the way. The patient's currently on room air. The chest x-ray does not show any gross abnormalities. Labs, x-rays, and medications are reviewed. Currently, her room air saturations are 93%. Prognosis is guarded. Time with Patient: Less than 30
[2023-03-22 10:12] VITALS: PULSE 85
--- NOTE | 2023-03-22 10:20 | CA ---
Transthoracic Echo Report Name: Alicia Taylor Age: 77 Gender: F : 1945 Exam Date: 03/22/2023 07:25 Exam Location: [facility] Ht (in): 61 Wt (lb): 212 Ordering Physician: Evangelina Hughes Attending/Referring Phys: [id number], Ellen Pearl Technician Sandra Ramirez [facility] Procedure CPT: Indications: post TAVR Cardiac Hx: Technical Quality: Technically difficult study Contrast 1: Lumason Total Dose (mL): 5 Contrast 2: Total Dose (mL): MEASUREMENTS (Male / Female) Normal Values 2D ECHO LV Diastolic Diameter PLAX 4.5 cm 4.2 - 5.9 / 3.9 - 5.3 cm LV Systolic Diameter PLAX 1.9 cm IVS Diastolic Thickness 1.0 cm 0.6 - 1.0 / 0.6 - 0.9 cm LVPW Diastolic Thickness 1.1 cm 0.6 - 1.0 / 0.6 - 0.9 cm LV Relative Wall Thickness 0.5 LVOT Diameter 2.0 cm DOPPLER AV Peak Velocity 228.8 cm/s AV Peak Gradient 20.9 mmHg AV Mean Velocity 157.5 cm/s AV Mean Gradient 11.5 mmHg AV Velocity Time Integral 46.2 cm LVOT Peak Velocity 145.5 cm/s LVOT Peak Gradient 8.5 mmHg LVOT Velocity Time Integral 32.5 cm LVOT Stroke Volume 100.1 cm??? LVOT Stroke Volume Index 51.7 ml/m??? LVOT Cardiac Index 4027.9 cm???/min???m??? AV Area Cont Eq vti 2.2 cm??? AV Area Cont Eq pk 2.0 cm??? MV Peak Velocity 159.4 cm/s MV Peak Gradient 10.2 mmHg MV Mean Velocity 127.4 cm/s MV Mean Gradient 7.0 mmHg MV Velocity Time Integral 47.2 cm MV Area PHT 2.5 cm??? Mitral E Point Velocity 147.2 cm/s Mitral A Point Velocity 131.4 cm/s Mitral E to A Ratio 1.1 MV Deceleration Time 226.6 ms FINDINGS Left Ventricle Normal left ventricular systolic function with no obvious regional wall motion abnormalities. Mildly increased left ventricular wall thickness. Left ventricular ejection fraction is estimated at 60-65 %. Right Ventricle Normal right ventricular size and function. Right Atrium Normal right atrial size. Left Atrium Moderate left atrial dilatation. Mitral Valve Severe mitral annular calcification. Mitral valve thickened. Mild mitral regurgitation. Aortic Valve Normally functioning bioprosthetic aortic valve without stenosis with a peak velocity of 200 m/s, peak gradient 21 mmHg, mean gradient 12 mmHg and estimated aortic valve area of 2.2 cm???. Tricuspid Valve Structurally normal tricuspid valve. Mild tricuspid regurgitation. Pulmonic Valve Structurally normal pulmonic valve. No pulmonic regurgitation. Pericardium No pericardial effusion. Aorta Normal size aortic root and proximal ascending aorta. CONCLUSIONS 1. Normal left ventricular size and function 2. Bioprosthetic aortic valve with normal function, no regurgitation and mean gradient of 12 mmHg 3. Mild mitral and tricuspid regurgitation 4. Severe mitral annulus calcification Previewed by: Dr. Jared Sousa MD (Electronically Signed) Final Date: 22 March 2023 10:20
--- NOTE | 2023-03-22 10:36 | P.PN ---
Subjective Progress Note Date: 03/22/23 Principal diagnosis: Calcified aortic valve with severe symptomatic aortic valve stenosis, NYHA class II. History of hypertension, hyperlipidemia, type 2 diabetes, obesity, brain aneurysm, previous tobacco dependence, right internal carotid artery stenosis 50-69% POD #1 percutaneous aortic valve implantation with 29 mm core valve Evolute FX The patient was seen and examined this morning with Dr. Foster sitting up in bed in no acute distress. Denies any pain, states her breathing is better. She had a brief transient left bundle branch block yesterday after procedure without any chest pain/pressure, which has since resolved. The patient had been given beta jitendra yesterday morning prior to her procedure which she was not on at home. She did have a presyncopal episode this morning when getting up out of bed to the chair, possibly vasovagal response with decreased blood pressure. She was placed back in bed and recovered fairly quickly. Since then her heart r ate has been in the 80s, normal sinus rhythm, blood pressure stable in the 130s/50s. She is currently on room air with oxygen saturation in the low to mid 90s. Bilateral groin sites soft, nontender with palpable pulses. No other new concerns. Objective - Vital Signs Vital signs: Vital Signs Temp 98.8 F 03/22/23 08:00 Pulse 85 03/22/23 10:00 Resp 12 03/22/23 10:00 BP 132/59 03/22/23 10:00 Pulse Ox 92 L 03/22/23 10:00 FiO2 Intake & Output 03/21/23 03/22/23 03/22/23 18:59 06:59 18:59 Intake Total 1345 210 310 Output Total 905 1110 105 Balance 440 -900 205 Weight 96.6 kg 96.6 kg Intake: IV 865 210 70 Invasive Line 1 20 30 10 Invasive Line 2 20 30 10 Lactated Ringers 1,000 ml 225 @ 50 mls/hr IV .Q20H [facility] Rx#:[id number] Magnesium Sulfate-D5w Pmx 100 1 gm In Dextrose/Water 1 100ml.bag @ 100 mls/hr IVPB ONCE ONE Rx#: [id number] ceFAZolin 2 gm In Sodium 50 50 Chloride 0.9% 50 ml @ 100 mls/hr IVPB ONCE ONE Rx# :[id number] ceFAZolin 2 gm In Sodium 50 Chloride 0.9% 50 ml @ 100 mls/hr IVPB Q8H [facility] Rx#: [id number] Oral 480 240 Output: Urine 905 1110 105 Other: Voiding Method Toilet Toilet Indwelling Catheter # Bowel Movements 0 0 ABP, PAP, CO, CI - Last Documented Arterial Blood Pressure 142/52 - Exam CONSTITUTIONAL: Appears comfortable, cooperative, no acute distress RESPIRATORY: Lungs sounds clear bilaterally. Respirations even, nonlabored. Currently on room air with oxygen saturation 93%. Able to achieve 2000 mL on incentive spirometry. Strong cough. CARDIOVASCULAR: S1, S2 present. Regular rate and rhythm, sinus rhythm on telemetry. Palpable peripheral pulses bilaterally. No edema present GASTROINTESTINAL: Abdomen soft, nontender, nondistended. Active bowel sounds present 4 quadrants. Tolerating diet GENITOURINARY: Hernandez present draining clear, yellow urine. Output overnight 50-100 mL per hour INTEGUMENTARY: Skin is warm and dry, bilateral groins soft, nontender, no drainage NEUROLOGIC: Cranial nerves II through XII intact MUSKULOSKELETAL: Able to move all extremities, strength equal bilaterally PSYCHIATRIC: Alert and oriented to person place and time, appropriate affect, intact judgment and insight - Allied health notes Allied health notes reviewed: nursing - Labs CBC & Chem 7: 03/22/23 03:47 03/22/23 03:47 Labs: Abnormal Lab Results - Last 24 Hours (Table) 03/15/23 03/21/23 03/21/23 Range/Units 12:14 11:36 11:40 RBC 3.79 L (3.80-5.40) m/uL Hgb (11.4-16.0) gm/dL Hct (34.0-46.0) % Lymphocytes # (1.0-4.8) k/uL Sodium (137-145) mmol/L BUN (7-17) mg/dL Glucose (74-99) mg/dL POC Glucose (mg/dL) 122 H (70-110) mg/dL Total Protein (6.3-8.2) g/dL Crossmatch See Detail 03/21/23 03/21/23 03/21/23 Range/Units 11:40 16:20 20:58 RBC (3.80-5.40) m/uL Hgb (11.4-16.0) gm/dL Hct (34.0-46.0) % Lymphocytes # (1.0-4.8) k/uL Sodium (137-145) mmol/L BUN 22 H (7-17) mg/dL Glucose 127 H (74-99) mg/dL POC Glucose (mg/dL) 118 H 139 H (70-110) mg/dL Total Protein (6.3-8.2) g/dL Crossmatch 03/22/23 03/22/23 03/22/23 Range/Units 03:47 03:47 05:44 RBC 3.59 L (3.80-5.40) m/uL Hgb 11.3 L (11.4-16.0) gm/dL Hct 33.8 L (34.0-46.0) % Lymphocytes # 0.9 L (1.0-4.8) k/uL Sodium 134 L (137-145) mmol/L BUN (7-17) mg/dL Glucose 150 H (74-99) mg/dL POC Glucose (mg/dL) 163 H (70-110) mg/dL Total Protein 6.1 L (6.3-8.2) g/dL Crossmatch - Imaging and Cardiology Chest x-ray: report reviewed, image reviewed Assessment and Plan Assessment: Calcified aortic valve with severe symptomatic aortic valve stenosis, NYHA class II, status post 29 mm TAVR Transient brief episode of left bundle branch block, resolved History of hypertension, episode of hypotension with presyncope this morning Hyperlipidemia, treated Type 2 diabetes Obesity Brain aneurysm Previous tobacco dependence Right internal carotid artery stenosis 50-69% Plan: Continue to maximize medical therapy with low-dose aspirin, statin. Will hold lisinopril today. Beta jitendra discontinued Increase activity, ambulate as tolerated. Monitor for presyncope/syncope Continue to encourage incentive spirometry use Discontinue Hernandez catheter Repeat echocardiogram completed this morning Will keep patient overnight to monitor heart rate, blood pressure, and for any further symptoms Transfer orders placed with 3 S. cardiac stepdown, may transfer when bed available Likely will discharge to home tomorrow
[2023-03-22 11:22] LABS: Glucose,Whole Blood 148 mg/dL (70-110)
--- NOTE | 2023-03-22 12:52 | P.DS ---
Providers Date of admission: 03/21/23 07:55 Expected date of discharge: 03/22/23 Attending physician: Pito Foster DO Consults: 03/21/23 08:00 Consult to Anesthesia Routine Consulting Provider: Anesthesia,Services Consult Reason/Comments: Cardiac Surgery Pre-Op 03/21/23 11:12 Consult Physician Routine Consulting Provider: Mik Peters Consult Reason/Comments: [employer] Consult: post cardiac surgery Do you want consulting provider notified?: Yes Consult Physician Routine Consulting Provider: Adam Christian Consult Reason/Comments: post tavr Do you want consulting provider notified?: Already Contacted 03/21/23 16:39 Consult Physician Routine Consulting Provider: Taras Prabhakar Consult Reason/Comments: medical management, urinary retention Do you want consulting provider notified?: Yes Primary care physician: Fela Haskins Hospital Course: MEDICAL HISTORY: 1. Calcified aortic valve with severe symptomatic aortic valve stenosisNYHA class II 2. Hypertension 3. Hyperlipidemia, treated 4. Diabetes mellitus, type II, hemoglobin A1c 6.1% 5. Obesity 6. History of brain aneurysm 7. Previous tobacco dependence 8. Right internal carotid artery stenosis 50-69% 9. Brief episode left bundle branch block without chest pain, resolved 10. Pre-syncopal episode with hypotension, resolved PROCEDURE: 1. Percutaneous aortic valve implantation using a 29 mm Core Valve Evolute-FX under SETH and fluoroscopy guidance 2. Transesophageal echocardiography performed by anesthesia 3. Ultrasound-guided access and repair of right femoral artery access site by Perclose closure device 4. Placement of temporary pacemaker wire 5. Aortic root angiography HISTORY OF PRESENT ILLNESS: This is a 77-year-old female who follows on an outpatient basis with Dr. Haskins for primary care and Dr. Foster for cardiology. She has a known history of severe aortic stenosis and has been symptomatic with increased exertional dyspnea as well as occasional chest pain and complete lack of energy. She had been referred to structural heart clinic for evaluation for transcatheter aortic valve replacement after heart catheterization and transesophageal echocardiogram were completed. Echocardiography demonstrated normal systolic function with EF 55-60%, aortic valve area 0.36 cm with a peak/mean gradient 84/49 mmHg. Heart catheterization showed no significant coronary stenosis. After workup was completed STS risk score was calculated along with incremental risk and the patient was felt to be better served with transcatheter aortic valve replacement. The usual course of TAVR was discussed in detail the patient and family, risks and benefits were reviewed, shared decision making between cardiology, surgery, and the patient/family took place, and the patient consented to proceed with the procedure. HOSPITAL COURSE: The patient was brought to the hospital on 03/22/23, was taken to the extended stay area, prepared in the usual fashion, and subsequently taken to the cardiac catheterization laboratory where Dr. Foster and Dr. Christian completed TAVR procedure under general anesthesia with fluoroscopy and SETH. The valve was deployed under rapid ventricular pacing and proceeded without event. At the end of the procedure there was mean gradient 8 mmHg, hemodynamics were felt to be acceptable, and there was mild perivalvular leak. Upon completion of the procedure the patient was extubated and was transferred to the cardiovascular intensive care unit where she was recovered and monitored hemodynamically. She had a brief transient left bundle branch block which resolved, and an episode of pre-syncope when getting out of bed in the morning with hypotension, again resolved. Her oxygen was titrated down, she was tolerating oral diet, her pain was controlled, follow-up TTE demonstrated normal left ventricular systolic function, normally functioning TAVR valve with no aortic valve regurgitation or paravalvular leak, and she was ready to be discharged to home on postoperative day #1. She received written and verbal instruction regarding her medications, activity restrictions, signs and symptoms requiring physician notification, and follow-up appointments. Patient Condition at Discharge: Stable Plan - Discharge Summary Discharge Rx Participant: Yes New Discharge Prescriptions: New Sennosides-Docusate Sodium [Senokot-S] 2 each PO HS PRN tab PRN Reason: Constipation Aspirin 81 mg PO DAILY #30 tab Continue lisinopriL [Zestril] 10 mg PO DAILY Multivit-Min/Iron/Folic/Lutein [Centrum Silver Women Tablet] 1 each PO DAILY Cholecalciferol [Vitamin D3 (25 Mcg = 1000 Iu)] 25 mcg PO DAILY Atorvastatin [Lipitor] 40 mg PO HS Acetaminophen Tab [Tylenol] 650 mg PO Q4-6H PRN PRN Reason: Pain metFORMIN HCL [Glucophage] 1,000 mg PO BID #0 Garlic Extract [Garlic] 400 mg PO DAILY Cyanocobalamin (Vitamin B-12) [Vitamin B-12] 1,000 mcg PO DAILY Pioglitazone HCl 30 mg PO DAILY Discharge Medication List Atorvastatin [Lipitor] 40 mg PO HS 02/16/23 [History] Cholecalciferol [Vitamin D3 (25 Mcg = 1000 Iu)] 25 mcg PO DAILY 02/16/23 [History] Cyanocobalamin (Vitamin B-12) [Vitamin B-12] 1,000 mcg PO DAILY 02/16/23 [History] Garlic Extract [Garlic] 400 mg PO DAILY 02/16/23 [History] Multivit-Min/Iron/Folic/Lutein [Centrum Silver Women Tablet] 1 each PO DAILY 02/16/23 [History] Pioglitazone HCl 30 mg PO DAILY 02/16/23 [History] lisinopriL [Zestril] 10 mg PO DAILY 02/16/23 [History] Acetaminophen Tab [Tylenol] 650 mg PO Q4-6H PRN 03/20/23 [History] Aspirin 81 mg PO DAILY #30 tab 03/22/23 [Rx] Sennosides-Docusate Sodium [Senokot-S] 2 each PO HS PRN tab 03/22/23 [Rx] metFORMIN HCL [Glucophage] 1,000 mg PO BID #0 03/22/23 [Rx] Follow up Appointment(s)/Referral(s): Pito Foster DO [STAFF PHYSICIAN] - 03/29/23 9:30 am (Your appointment w/ Dr. Foster on 03/29 is for groin check. You also have an appointment with Dr. Foster at [facility] 05/28/23 @ 10 am for 30 day echo, as well as 1 year follow up with Dr. Foster 02/21/24 @ 10 am for 1 year echo you DO NOT have an appointment 04/17/23-it was cancelled) Fela Haskins MD [Primary Care Provider] - As Needed Clinic,Structural Heart [NON-STAFF] - 05/28/23 9:30 am (You have a valve clinic appointment 05/28/23 @ 9:30 am in the TAVR clinic for 30 day follow up, then you will go to [facility] for 30 day echo. You also have valve clinic appointment 02/21/24 @ 9:30 am for 1 year follow up, then you will go to [facility] for 1 year echo) Ambulatory/Diagnostic Orders: Complete Blood Count w/diff [LAB.AMB] Location: None Selected Complete Blood Count w/diff [LAB.AMB] Location: None Selected Comprehensive Metabolic Panel [LAB.AMB] Location: None Selected Comprehensive Metabolic Panel [LAB.AMB] Location: None Selected Activity/Diet/Wound Care/Special Instructions: DISCHARGE INSTRUCTIONS: 1. No driving for 1 week, or until physician gives their ok. 2. No lifting, pushing, or pulling more than 5-10 pounds for 1 week. 3. Hold both groins when you cough or sneeze for the next 2 weeks. Bruising is common, but report increased swelling, pain or fever >101F 4. Shower daily. No pool, hot tub, or bathtub for 1 week 5. No powders, lotions, ointments on incisions. 6. No straining, including for bowel movements. Use stool softner if necessary 7. Stairs are not an issue. Go slowly, using handrail and take 1 step at a time. Ambulate several times daily 8. Continue pain control per as needed orders. 9. Take only the medications listed on your discharge form 10. Eat low salt (limited to 2 grams or 2000 milligrams) daily, avoid adding salt, avoid canned/processed foods 11. Take your weight daily in the morning and record, bring with you to your follow up appointments 12. Keep all follow up appointments. You will need a valve clinic appointment at 30 days and 1 year post procedure for follow up 13. You have been referred to and are expected to begin Cardiac Rehab in approximately 4 weeks. 14. You will need antibiotics prior to any dental work, including cleanings, and any surgeries to prevent Endocarditis (bacterial infection in your heart) For any questions or concerns please call your valve coordinators: Evangelina or Duy @ Discharge Disposition: HOME SELF-CARE
[2023-03-22 13:50] VITALS: BMI 39.6
[2023-03-22 14:44] VITALS: BP 131/54; RESP 16; TEMP 98.4
--- NOTE | 2023-03-22 15:46 | P.CONS ---
History of Present Illness - Reason for Consult Consult date: 03/22/23 Medical management post TAVR, postop retention - History of Present Illness This is a 77-year-old female who was admitted under cardiothoracic services status post TAVR secondary to a calcified aortic valve with severe symptomatic aortic valve stenosis. Patient follows with Dr. Haskins in the outpatient setting with a past medical history of diabetes mellitus, hyperlipidemia, hypertension. Patient was experiencing some postop urinary retention requiring indwelling Hernandez catheter. Patient has since had the Hernandez catheter removed and per nursing staff was able to void 400 and post void residual was noted to be 30 mL. Patient is being discharged and has been cleared by cardiothoracic along with cardiology for close outpatient follow-up. Review Of Systems: Constitutional: No fever, no chills, no night sweats. No weight change. No weakness, fatigue or lethargy. No daytime sleepiness. EENT: No headache. No blurred vision or double vision, no loss of vision. No loss of Hearing, no ringing in the ears, no dizziness. No nasal drainage or congestion. No epistaxis. No sore throat. Lungs: No shortness of breath, cough, no sputum production. No wheezing. Cardiovascular: No chest pain, no lower extremity edema. No palpitations. No paroxysmal nocturnal dyspnea. No orthopnea. No lightheadedness or dizziness. No syncopal episodes. Abdominal: No abdominal pain. No nausea, vomiting. No diarrhea. No constipation. No bloody or tarry stools.. No loss of appetite. Genitourinary: No dysuria, increased frequency, urgency. Patient reports postop urinary retention. Musculoskeletal: No myalgias. No muscle weakness, no gait dysfunction, no frequent falls. No back pain. No neck pain. Integumentary: No wounds, no lesions. No rash or pruritus. No unusual bruising. No change in hair or nails. Neurologic: No aphasia. No facial droop. No change in mentation. No head injury. No headache. No paralysis. No paresthesia. Psychiatric: No depression. No anxiety. No mood swings. Endocrine: No abnormal blood sugars. No weight change. No excessive sweating or thirst. No cold intolerance. PHYSICAL EXAMINATION: GENERAL: The patient is alert and oriented x4, Well developed, well nourished. Obese HEENT: Pupils are round and equally reacting to light. EOMI. no scleral icterus. No conjunctival pallor. Normocephalic, atraumatic. No pharyngeal erythema. No thyromegaly. CARDIOVASCULAR: S1 and S2 muffled PULMONARY: diminished breath sounds bilaterally with no wheezing or rhonchi noted. ABDOMEN: soft. Nontender on exam. obese. non-distended, normoactive bowel sounds. No palpable organomegaly. MUSCULOSKELETAL: No joint swelling or deformity. EXTREMITIES: No cyanosis, clubbing, or pedal edema. NEUROLOGICAL: Gross neurological examination did not reveal any focal deficits. SKIN: No rashes. Assessment: Severe symptomatic aortic valve stenosis status post TAVR Postoperative urinary retention, most likely secondary to anesthesia, improved History of diabetes mellitus Hyperlipidemia history Hypertension Former smoker GI prophylaxis DVT prophylaxis Full code Plan: Recommend to continue with current medications and management per cardiothoracic services. Patient also being followed by cardiology and has cleared the patient for discharge home. Patient is extremely anxious to go home and cardiothoracic surgery working on discharge planning Patient did require indwelling Hernandez catheter for urinary retention postoperatively although is improved and had voided after removal of Hernandez per nursing staff and only had 30 mL of urine on postvoid residual Patient encouraged to continue with medication compliance and close outpatient follow-up with CT surgery along with primary care provider Thank you kindly for this consultation and we will continue to follow during hospitalization. The impression and plan of care has been dictated by Corrina Domínguez, nurse practitioner as directed. Dr. Vel MD I have performed a history and examination and MDM of this patient, discussed the same with the dictator, and agree with the dictator's assessment and plan as written ,documented as a scribe. Based on total visit time, I have performed more than 50% of the visit. Any additional findings or plans will be noted. Past Medical History Past Medical History: Diabetes Mellitus, Hyperlipidemia, Hypertension, Skin Disorder Additional Past Medical History / Comment(s): "small dot like rash that comes & goes", SOB w/exertion, had 7 teeth pulled last week for this upcoming surgery, states "they never gave me antibiotics for after". TAVR 03/21/23 W/ Dr. Foster & Dr. Christian History of Any Multi-Drug Resistant Organisms: None Reported Past Surgical History: Breast Surgery, Section, Heart Catheterization Additional Past Surgical History / Comment(s): mason. breast bx-benign, C/S x3, SETH Past Anesthesia/Blood Transfusion Reactions: No Reported Reaction Past Psychological History: No Psychological Hx Reported Smoking Status: Former smoker Past Alcohol Use History: None Reported Additional Past Alcohol Use History / Comment(s): quit smoking 1984, 3ppd for 2 yrs. Past Drug Use History: None Reported - Past Family History Mother Additional Family Medical History / Comment(s): "heart issues" Medications and Allergies Home Medications Medication Instructions Recorded Confirmed Type Atorvastatin [Lipitor] 40 mg PO HS 02/16/23 03/21/23 History Cholecalciferol [Vitamin D3 (25 25 mcg PO DAILY 02/16/23 03/20/23 History Mcg = 1000 Iu)] Cyanocobalamin (Vitamin B-12) 1,000 mcg PO DAILY 02/16/23 03/20/23 History [Vitamin B-12] Garlic Extract [Garlic] 400 mg PO DAILY 02/16/23 03/20/23 History Multivit-Min/Iron/Folic/Lutein 1 each PO DAILY 02/16/23 03/20/23 History [Centrum Silver Women Tablet] Pioglitazone HCl 30 mg PO DAILY 02/16/23 03/21/23 History lisinopriL [Zestril] 10 mg PO DAILY 02/16/23 03/21/23 History Acetaminophen Tab [Tylenol] 650 mg PO Q4-6H PRN 03/20/23 03/20/23 History Aspirin 81 mg PO DAILY #30 tab 03/22/23 Rx Sennosides-Docusate Sodium 2 each PO HS PRN tab 03/22/23 Rx [Senokot-S] metFORMIN HCL [Glucophage] 1,000 mg PO BID #0 03/22/23 03/20/23 Rx Allergies Allergy/AdvReac Type Severity Reaction Status Date / Time codeine Allergy Rash/Hives Verified 03/21/23 14:18 nitroglycerin Allergy Unknown Verified 03/21/23 14:18 Penicillins Allergy Rash/Hives Verified 03/21/23 14:18 Sulfa (Sulfonamide Allergy Rash/Hives Verified 03/21/23 14:18 Antibiotics) Physical Exam Vitals: Vital Signs Temp Pulse Resp BP BP Pulse Ox 03/22/23 12:00 98.4 F 16 131/54 92 L 03/22/23 10:00 85 12 132/59 92 L 03/22/23 09:00 82 16 133/50 93 L 03/22/23 08:00 98.8 F 87 23 135/59 92 L 03/22/23 07:00 89 24 102/47 90 L 03/22/23 06:00 80 24 99/44 86 L 03/22/23 05:00 91 20 138/57 91 L 03/22/23 04:00 99.1 F 93 17 115/52 91 L 03/22/23 03:00 96 17 103/43 91 L 03/22/23 02:00 93 13 118/46 93 L 03/22/23 01:00 91 18 123/51 95 03/22/23 00:00 98.6 F 90 25 H 114/49 95 03/21/23 23:00 89 20 135/61 94 L 03/21/23 22:00 93 14 157/64 91 L 03/21/23 21:00 75 19 143/57 03/21/23 20:00 98.6 F 76 12 143/56 03/21/23 19:00 74 20 144/56 94 L 03/21/23 18:00 80 17 144/56 94 L 03/21/23 17:00 65 15 132/56 92 L 03/21/23 16:00 97.8 F 73 22 117/72 92 L 03/21/23 15:45 64 21 110/89 92 L 03/21/23 15:30 58 L 20 126/47 93 L Intake and Output 03/22/23 03/22/23 03/22/23 06:59 14:59 22:59 Intake Total 190 550 Output Total 660 660 Balance -470 -110 Intake: IV 190 70 Invasive Line 1 20 10 Invasive Line 2 20 10 Magnesium Sulfate-D5w Pmx 100 1 gm In Dextrose/Water 1 100ml.bag @ 100 mls/hr IVPB ONCE ONE Rx#: [id number] ceFAZolin 2 gm In Sodium 50 Chloride 0.9% 50 ml @ 100 mls/hr IVPB ONCE ONE Rx# :[id number] ceFAZolin 2 gm In Sodium 50 Chloride 0.9% 50 ml @ 100 mls/hr IVPB Q8H [facility] Rx#: [id number] Oral 480 Output: Urine 660 630 Post Void Residual 30 Other: Voiding Method Toilet Indwelling Catheter # Voids 1 # Bowel Movements 0 Weight 96.6 kg 96.6 kg Results CBC & Chem 7: 03/22/23 03:47 03/22/23 03:47 Labs: Abnormal Lab Results - Last 24 Hours (Table) 03/15/23 03/21/23 03/21/23 Range/Units 12:14 16:20 20:58 RBC (3.80-5.40) m/uL Hgb (11.4-16.0) gm/dL Hct (34.0-46.0) % Lymphocytes # (1.0-4.8) k/uL Sodium (137-145) mmol/L Glucose (74-99) mg/dL POC Glucose (mg/dL) 118 H 139 H (70-110) mg/dL Total Protein (6.3-8.2) g/dL Crossmatch See Detail 03/22/23 03/22/23 03/22/23 Range/Units 03:47 03:47 05:44 RBC 3.59 L (3.80-5.40) m/uL Hgb 11.3 L (11.4-16.0) gm/dL Hct 33.8 L (34.0-46.0) % Lymphocytes # 0.9 L (1.0-4.8) k/uL Sodium 134 L (137-145) mmol/L Glucose 150 H (74-99) mg/dL POC Glucose (mg/dL) 163 H (70-110) mg/dL Total Protein 6.1 L (6.3-8.2) g/dL Crossmatch 03/22/23 Range/Units 11:20 RBC (3.80-5.40) m/uL Hgb (11.4-16.0) gm/dL Hct (34.0-46.0) % Lymphocytes # (1.0-4.8) k/uL Sodium (137-145) mmol/L Glucose (74-99) mg/dL POC Glucose (mg/dL) 148 H (70-110) mg/dL Total Protein (6.3-8.2) g/dL Crossmatch
== END 2023-03-22 15:38 | disposition home or self-care (01) | DRG 267 ==
LOC: 2ORMAIN 07:55 → 2SICU 11:17
PROVIDERS: ADMIT Internal Medicine; ATTEND Internal Medicine
PROC: 02HK3JZ Insertion of Pacemaker Lead into Right Ventricle, Percutaneous Approach (ICD-10-PCS; 2023-03-21)
PROC: B310ZZZ Fluoroscopy of Thoracic Aorta (ICD-10-PCS; 2023-03-21)
PROC: 02RF38Z Replacement of Aortic Valve with Zooplastic Tissue, Percutaneous Approach (ICD-10-PCS; principal; 2023-03-21 10:20)
PROC: 5A1223Z Performance of Cardiac Pacing, Continuous (ICD-10-PCS; 2023-03-21 10:20)
DX: I35.8 Other nonrheumatic aortic valve disorders (principal); Z00.6 Encounter for examination for normal comparison and control in clinical research program; I67.1 Cerebral aneurysm, nonruptured; I95.9 Hypotension, unspecified; I65.21 Occlusion and stenosis of right carotid artery; Z68.39 Body mass index [BMI] 39.0-39.9, adult; E66.01 Morbid (severe) obesity due to excess calories; I10 Essential (primary) hypertension; E11.9 Type 2 diabetes mellitus without complications; I44.7 Left bundle-branch block, unspecified; E78.5 Hyperlipidemia, unspecified; T88.59XA Other complications of anesthesia, initial encounter; T41.45XA Adverse effect of unspecified anesthetic, initial encounter; R33.9 Retention of urine, unspecified; Z87.891 Personal history of nicotine dependence; Z79.899 Other long term (current) drug therapy; Z79.84 Long term (current) use of oral hypoglycemic drugs; Z88.5 Allergy status to narcotic agent; Z88.0 Allergy status to penicillin; Z88.2 Allergy status to sulfonamides; Z88.8 Allergy status to other drugs, medicaments and biological substances; Z79.82 Long term (current) use of aspirin
CPT/HCPCS: 33210; 33361; 71045; 80053; 82330; 83735; 84132; 85025; 85610; 85730; 86850; 86900; 86901; 86920; 93306; 93312; 93320; 93325